=== PATIENT | female | born 1990 ===

== ENCOUNTER 2024-03-26 05:30 | Inpatient (IN) | payer OTHER ==
[2024-03-21 11:17] LABS: PH,URINE 7.5 (5.0-8.0); URINE APPEARANCE Clear; URINE BILIRRUBIN Negative (NEGATIVE); URINE BLOOD Negative; URINE COLOR Yellow; URINE GLUCOSE Negative (NEGATIVE); URINE KETONE Negative (NEGATIVE); URINE LEUKOCYTE Negative; URINE NITRATE Negative; URINE PROTEIN Negative (NEGATIVE); URINE UROBILINOGEN 0.2 E.U./dl
[2024-03-21 11:18] LABS: URINE BACTERIA 316.2 uL (0.0-1933); URINE EPITHELIAL CELLS 8.4 uL (0.0-38.8); URINE RBC 18.9 uL (0.0-20.8); URINE WBC 2.4 uL (0.0-23.2)
[2024-03-21 11:20] LABS: HEMATOCRIT 35.6 % (36.0-45.00); MEAN CELL VOLUME 85.2 fL (80.00-100.00); MEAN CORPUSCULAR HEMOGLOBIN 28.7 pg (27.00-32.0); MEAN CORPUSCULAR HGB CONC 33.7 g/dl (32.0-36.0); PLATELET COUNT 406 K/uL (150-450); RED BLOOD COUNT 4.18 M/uL (4.00-6.00); RED CELL DISTRIBUTION WIDTH 15.5 % (11.5-14.5)
[2024-03-21 11:28] LABS: PARTIAL THROMBOPLASTIN TIME 29.3 SECONDS (22.0-34.0)
[2024-03-21 11:30] LABS: PROTHROMBIN TIME 10.5 SECONDS (9.0-11.5)
[2024-03-21 11:33] LABS: ALBUMIN 3.8 gm/dL (3.4-5.0); BILIRUBIN TOTAL 0.37 mg/dL (0.3-1.2); CALCIUM 9.5 mg/dL (8.5-10.1); CREATININE SERUM 0.79 mg/dL (0.55-1.02); GFR 83.31; GLOBULINA 3.4 G/DL (2.4-3.5); POTASSIUM 4.5 mEq/L (3.5-5.1); TOTAL PROTEIN 7.2 gm/dL (6.4-8.2)
[~2024-03-26] VITALS: Ht 160 cm; Wt 69.9 kg
[~2024-03-26 05:30] MED LIST: WIXELA
[2024-03-26] MEDS ORDERED: CEFAZOLIN SODIUM 1,000 MG VIAL ONE (09:24)
[2024-03-26] MEDS ORDERED: MEPERIDINE HCL/PF 50 MG/ML VIAL IV SCH (12:33)
[2024-03-26] MEDS ORDERED: PROMETHAZINE HCL 25 MG/ML AMPUL IV SCH (12:33)
[2024-03-26] MEDS ORDERED: PROMETHAZINE HCL 25 MG/ML AMPUL ONE (15:20)
[2024-03-26 20:13] LABS: HEMATOCRIT 34.7 % (36.0-45.00); HEMOGLOBIN 11.3 g/dL (12.0-15.00); MEAN CELL VOLUME 86.4 fL (80.00-100.00); MEAN CORPUSCULAR HEMOGLOBIN 28.3 pg (27.00-32.0); MEAN CORPUSCULAR HGB CONC 32.7 g/dl (32.0-36.0); PLATELET COUNT 360 K/uL (150-450); RED BLOOD COUNT 4.02 M/uL (4.00-6.00); RED CELL DISTRIBUTION WIDTH 15.1 % (11.5-14.5)
[2024-03-27] MEDS ORDERED: IBUprofen 800 MG TABLET PO SCH (02:00)
[2024-03-27] MEDS ORDERED: GABAPENTIN 300 MG CAPSULE PO SCH (05:00)
[2024-03-27] MEDS ORDERED: POLYETHYLENE GLYCOL 3350 17 GM BLIST.PACK PO SCH (09:00)
[2024-03-28] MEDS ORDERED: POLY119PG PO (06:58)
[2024-03-28] MEDS ORDERED: GABAPENTIN300 MG PO (06:58)
[2024-03-28] MEDS ORDERED: IBUPROFEN800 MG PO (06:58)
== END 2024-03-28 08:44 | disposition home or self-care (01) | DRG 743 ==
LOC: CIR.AMB 05:30 → O/R 13:06 → OB/GYN 15:06
PROVIDERS: ADMIT Obstetrics & Gynecology; ATTEND Obstetrics & Gynecology
PROC: 0UT60ZZ Resection of Left Fallopian Tube, Open Approach (ICD-10-PCS; 2024-03-26)
PROC: 0UT10ZZ Resection of Left Ovary, Open Approach (ICD-10-PCS; 2024-03-26)
PROC: 0U5F0ZZ Destruction of Cul-de-sac, Open Approach (ICD-10-PCS; 2024-03-26)
PROC: 0UB00ZZ Excision of Right Ovary, Open Approach (ICD-10-PCS; principal; 2024-03-26 09:30)
DX: D27.1 Benign neoplasm of left ovary (principal); N80.103 Endometriosis of bilateral ovaries, unspecified depth; N80.329 Endometriosis of the posterior cul-de-sac, unspecified depth; Z20.822 Contact with and (suspected) exposure to COVID-19